=== PATIENT | female | born 1980 | race Caucasian/White ===

== ENCOUNTER 2016-08-30 17:30 | Inpatient (IN) | payer MEDICARE ==
[2016-08-30 18:09] VITALS: BP 110/69
--- NOTE | 2016-08-30 18:37 | ED Physician Chart ---
Chief Complaint/HPI - Patient Information Date Seen:: 08/30/16 Time Seen:: 18:18 Chief Complaint:: psychosis History of Present Illness:: this is a 36 yo female is here because of a sudden change in her mental status. she is a chronically ill female for multiple problems. TO NAME A FEW PROBLEMS ENCEPHALOPATHY, EPILEPSY, HYPOTHYROIDISM, HYPERLIPIDEMIA,THROMBOSIS AND GERD. SHE HAS BEEN REHAB FOR SOME TIME. TODAY SHE HAS INTRACTABLE BILATERAL LEG PAIN. Allergies:: Allergies Allergy/AdvReac Type Severity Reaction Status Date / Time clarithromycin AdvReac Verified 08/30/16 17:42 latex AdvReac Verified 08/30/16 17:42 Vitals:: Vital Signs - 8 hr 08/30/16 08/30/16 18:09 18:12 Temp 97.9 F HR 68 RR 18 BP 110/69 110/69 O2 Sat % 96 Historian:: Family Member, Medical Records Review:: Nurse's Note Reviewed, Transfer documents Reviewed <Jose Francisco Fan - Last Filed: 08/30/16 19:41> - Patient Information History of Present Illness:: Agree with Dr. Fan's assessment. 36-year-old female with acute, severe, agitation since this morning. Has associated screaming and yelling tantrums. Allergies:: Allergies Allergy/AdvReac Type Severity Reaction Status Date / Time clarithromycin AdvReac Verified 08/30/16 17:42 latex AdvReac Verified 08/30/16 17:42 Vitals:: Vital Signs - 8 hr 08/30/16 08/30/16 08/30/16 18:09 18:12 19:27 Temp 97.9 F 97.8 F HR 68 73 RR 18 18 BP 110/69 110/69 116/79 O2 Sat % 96 96 Historian:: Family Member, Medical Records Review:: Nurse's Note Reviewed, Transfer documents Reviewed <Sukhi Bradshaw - Last Filed: 08/30/16 20:20> Review of Systems - Review of Systems General/Constitutional: No fever, No chills, Weight loss, Weakness, No diaphoresis, No edema, No loss of appetite Skin: No skin lesions, No rash, No bruising Head: No headache, No light-headedness Eyes: No loss of vision, No pain, No diplopia ENT: No earache, No nasal drainage, No sore throat, No tinnitus Neck: No neck pain, No swelling, No thyromegaly, No stiffness, No mass noted Cardio Vascular: No chest pain, No palpitations, No PND, No orthopnea, No edema Pulmonary: No SOB, No cough, No sputum, No wheezing GI: No nausea, No vomiting, No diarrhea, No pain, No melena, No hematochezia, No constipation, No hematemesis G/U: No dysuria, No frequency, No hematuria Musculoskeletal: No bone or joint pain, No back pain, No muscle pain Endocrine: No polyuria, No polydipsia Psychiatric: Prior psych history, Depression, Anxiety, No suicidal ideation Hematopoietic: No bruising, No lymphadenopathy Allergic/Immuno: No urticaria, No angioedema Neurological: No syncope, Focal symptoms, Weakness, No paresthesia, No headache , No seizure, No dizziness, No confusion, No vertigo <MengJose Francisco Last Filed: 08/30/16 19:41> Past Medical History - Past Medical History Obtainable: Yes Past Medical History: HTN, CVA/TIA, DVT/PE, Dyslipidemia, PUD/GERD, Seizures, Thyroid disorder Family History: None Social History: Non Smoker, No Alcohol, No Drug Use, , Care Facility Surgical History: None Psychiatricy History: Depression Medication: Reviewed <MengJose Francisco Last Filed: 08/30/16 19:41> Family Medical History - Family Member Mother History Unknown: Yes Hx Family Coronary Artery Disease: No Hx Family Congestive Heart Failure: No Hx Family Hypertension: No Hx Family Stroke: No Hx Family Diabetes: No Hx Family Seizures: No Hx Family Dementia: No Hx Family AIDS: No Hx Family HIV: No Hx Family Psychiatric Problems: No Hx Family Tuberculosis: No <MengJose Francisco Last Filed: 08/30/16 19:41> Physical Exam - Physical Examination General/Constitutional: Awake, Well-developed, well-nourished, Alert, No distress, GCS 15, Non-toxic appearing, Ambulatory Head: Atraumatic Eyes: Lids, conjuctiva normal, PERRL, EOMI Skin: Nl inspection, No rash, No skin lesions, No ecchymosis, Well hydrated, No lymphadenopathy ENMT: External ears, nose nl, Nasal exam nl, Lips, teeth, gums nl Neck: Nontender, Full ROM w/o pain, No JVD, No nuchal rigidity, No bruit, No mass, No stridor Respiratory: Nl effort/Exclusion, Clear to Auscultation, No Wheeze/Rhonchi/Rales Cardio Vascular: RRR, No murmur, gallop, rubs, NL S1 S2 GI: No tenderness/rebounding/guarding, No organomegaly, No hernia, Normal BS's, Nondistended, No mass/bruits, No McBurney tenderness : No CVA tenderness Extremities: No tenderness or effusion, Full ROM, normal strength in all extremities, No edema, Normal digits & nails Neuro/Psych: Alert/oriented, DTR's symmetric, Normal sensory exam, Normal motor strength (WEAKNESS ), Judgement/insight normal, Mood normal (DEPRESSED MOOD), Normal gait, No focal deficits Misc: normal gait, Normal back, No paraspinal tenderness <Jose Francisco Fan - Last Filed: 08/30/16 19:41> Labs/Radiology/EKG Results - EKG Interpretations EKG Time:: 16:17 Rhythm: SINUS Byron: LEFT AXIS Rate: 76 <Jose Francisco Fan - Last Filed: 08/30/16 19:41> - Lab Results Results: Laboratory Tests 08/30/16 08/30/16 08/30/16 18:44 18:44 18:44 WBC 6.6 RBC 3.71 L Hgb 12.1 Hct 34.6 L MCV 93.3 MCH 32.5 H MCHC Differential 34.9 RDW 13.8 Plt Count 248 MPV 7.8 Neutrophils % 74.0 Lymphocytes % 19.1 L Monocytes % 6.0 Eosinophils % 0.5 Basophils % 0.4 PT 12.7 H INR 1.21 Sodium Potassium Chloride Carbon Dioxide Anion Gap BUN Creatinine Est GFR ( Amer) Est GFR (Non-Af Amer) BUN/Creatinine Ratio Glucose Calcium Total Bilirubin AST ALT Alkaline Phosphatase Troponin I Total Protein Albumin Globulin Albumin/Globulin Ratio Triglycerides 134 Cholesterol 147 LDL Cholesterol Direct 84 HDL Cholesterol 40 RPR 08/30/16 08/30/16 08/30/16 18:44 18:44 18:44 WBC RBC Hgb Hct MCV MCH MCHC Differential RDW Plt Count MPV Neutrophils % Lymphocytes % Monocytes % Eosinophils % Basophils % PT INR Sodium 138 Potassium 3.5 Chloride 103 Carbon Dioxide 27.3 Anion Gap 11.2 BUN 11 Creatinine 0.6 Est GFR ( Amer) > 60.0 Est GFR (Non-Af Amer) > 60.0 BUN/Creatinine Ratio 18.3 Glucose 100 Calcium 9.6 Total Bilirubin 0.4 AST 18 ALT 54 H Alkaline Phosphatase 234 H Troponin I < 0.01 L Total Protein 7.5 Albumin 4.3 Globulin 3.2 Albumin/Globulin Ratio 1.3 Triglycerides Cholesterol LDL Cholesterol Direct HDL Cholesterol RPR NONREACTIVE - EKG Interpretations Comments:: 12-lead EKG Interpretation by Gena Bradshaw MD: Normal Sinus Rhythm with ventricular rate of 76 beats per minute Left axis Normal intervals No acute ST or T wave changes. No obvious STEMI <Sukhi Bradshaw - Last Filed: 08/30/16 20:20> ED Septic Shock - <6hrs of presentation: Vital Signs: Vital Signs - 8 hr 08/30/16 08/30/16 18:09 18:12 Temp 97.9 F HR 68 RR 18 BP 110/69 110/69 O2 Sat % 96 <Jose Francisco Fan - Last Filed: 08/30/16 19:41> - . Is Septic Shock (SBP<90, OR Lactate>4 mmol\L) present?: No - <6hrs of presentation: Vital Signs: Vital Signs - 8 hr 08/30/16 08/30/16 08/30/16 18:09 18:12 19:27 Temp 97.9 F 97.8 F HR 68 73 RR 18 18 BP 110/69 110/69 116/79 O2 Sat % 96 96 <Sukhi Bradshaw - Last Filed: 08/30/16 20:20> Reassessment (Disposition) - Reassessment Reassessment:: Patient has altered level of consciousness. She is apparently also failing to thrive. is here providing more details. Difficult to obtain an accurate history due to her altered level of consciousness. Discussed the case with the admitting physician. Patient admitted for altered level of consciousness and failure to thrive. - Diagnosis Diagnosis:: Acute altered level of consciousness Failure to thrive - Patient Disposition Discharge/Transfer:: Acute Care w/in this hosp Admitted to:: Med/Surg Admitting Medical Physician:: Min Small Time:: 20:20 Condition at Disposition:: Stable <Sukhi Bradshaw - Last Filed: 08/30/16 20:20>
[2016-08-30 18:56] LABS: % BASOPHILS 0.4 % (0.0-2.0); % EOSINOPHILS 0.5 % (0.0-5.0); % LYMPHOCYTES 19.1 % (20.0-50.0); HEMATOCRIT 34.6 % (35.0-45.0); HEMOGLOBIN 12.1 gm/dL (11.7-15.5); MEAN CELL VOLUME 93.3 fl (81-100); MEAN CORPUSCULAR HEMOGLOBIN 32.5 pg (27.0-31.0); MEAN CORPUSCULAR HGB CONC 34.9 pg (28.0-36.0); MEAN PLATELET VOLUME 7.8 fl; NEUTROPHILE ABSOLUTE 4.9 Th/cmm (1.8-8.0); PLATELET COUNT 248 Th/cmm (150-400); RED BLOOD COUNT 3.71 Mil/cmm (3.80-5.10); RED CELL DISTRIBUTION WIDTH 13.8 % (11.5-20.0); WHITE BLOOD COUNT 6.6 Th/cmm (4.8-10.8)
[2016-08-30 19:05] LABS: INR 1.21 (0.5-1.4); PROTHROMBIN TIME (TEST) 12.7 SECONDS (9.5-11.5)
[2016-08-30 19:08] LABS: ANION GAP 11.2 (7.0-16.0); BUN - UREA NITROGEN 11 mg/dL (7-25); CARBON DIOXIDE 27.3 mEq/L (21.0-31.0); CHLORIDE 103 mEq/L (98-107); GLUCOSE 100 mg/dL (70-105); POTASSIUM SERUM 3.5 mEq/L (3.5-5.1); SODIUM SERUM 138 mEq/L (136-145)
[2016-08-30 19:09] LABS: ALB/GLOB RATIO 1.3 (1.0-1.8); ALKALINE PHOSPHATASE 234 U/L (34-104); BILIRUBIN,TOTAL 0.4 mg/dL (0.3-1.0); BUN/CREATININE RATIO 18.3; CALCIUM SERUM 9.6 mg/dL (8.6-10.3); CHOLESTEROL 147 mg/dL (<200); CREATININE - SERUM 0.6 mg/dL (0.6-1.2); SGOT 18 U/L (13-39); SGPT/ALT 54 U/L (7-52); TRIGLYCERIDES 134 mg/dL (<150)
[2016-08-30] MEDS ORDERED: cefTRIAXone 1 GM in Sodium Chloride 0.9% 50 ML IV ONE (20:18)
[2016-08-30] MEDS: D5-0.45NS 1,000 ML IV SCH (21:21)
[2016-08-30] MEDS ORDERED: Morphine Sulfate 2 mg/mL 1mL Syr ONE (21:28)
[2016-08-30] MEDS: Morphine Sulfate 2 mg/mL 1mL Syr IVP PRN (21:30)
--- NOTE | 2016-08-31 04:49 | Admit Criteria Form ---
Admit Criteria Forms - Admit Criteria Diagnosis: ACUTE LOSS OF CONSCIOUSNESS- ALOC Clinical Indications for Inpatient Care (Place 'X' for any and all applicable criteria): Ongoing inpatient care may be needed for ANY ONE of the following(1)(2)(3)(5)(6) : [ X]I. Suspected serious etiology (eg, medical disorder, REPAIR CAMERAMAN event) of mental status change [ ]II. Danger to self or others not manageable at lower level of care [ ]III. Grave disability (eg, inability to perform self care necessary at lower level of care) [ ]IV. Agitation or inappropriate behavior interfering with care for primary condition (eg, attempting to discontinue lines or drains prematurely, unable to cooperate with respiratory care) [ ]V. Delirium [A] [D][E] as described by ANY ONE of the following(26): [ ]a) Delirium due to alcohol or sedative [F] withdrawal [ ]b) Delirium of uncertain etiology that has not responded to appropriate empiric treatment [ ]c) Delirium that prevents performance of a life-sustaining function (eg, feeding or hydrating oneself) [X ]. General contraindications and/or Inappropriate clinical situations for Observational Care in patients with Acute Loss of Consciousness, when ANY ONE of the following is required: [ ]a) Prediction of prolongation of LOS based on ANY ONE of the following may be considered as a contraindication for observational care 2, 3, 4, 5, 6, 7, 8 , 9, 10, 11 [ ]i) Age > 65 yrs. [ ]ii) Patient arriving by ambulance [ ]iii) Patient with high acuity [ ]iv) Patient requiring vital sign monitoring [ ]v) Patient on IV medication [ ]b) Systolic blood pressures 180mmHg 3,12 [ ]c) Patient with altered mental status including delirium and other alteration of consciousness, (3) [ ]d) Patient whose discharge disposition will be to a assisted home or rehabilitation home should not be managed in Emergency Department Observation Unit. CMS rule requires 3 days hospital stay before such placement.3,13 [X ]e) Patient with failure to thrive due to broad array of etiologies 3,16,17 [ ]f) Inability to ambulate 3,14 Extended stay beyond goal length of stay for the primary condition may be needed until ALL of the following are present(3)(5): [ ]a) Underlying medical etiology of mental status change is absent, or has been established and adequately treated [ ]b) Danger to self or others is absent or manageable at lower level of care. [ ]c) Behavior crisis management, including physical or chemical restraints, is not required or available at lower level of car [ ]d) Substance or alcohol withdrawal is absent or manageable at lower level of care. [ ]e) Behavioral symptoms (eg, agitation, somnolence, inappropriate behavior) are absent, or are manageable at lower level of care. The [facility] content created by [facility] has been revised. The portions of the content which have been revised are identified through the use of italic text or in bold, and [facility] has neither reviewed nor approved the modified material. All other unmodified content is copyright [facility]. Please see references footnoted in the original [facility] edition 2016 Admit Criteria Met?: Yes
[2016-08-31] MEDS: Pantoprazole 40 mg/Packet GT SCH (08:54)
[2016-08-31] MEDS: Aspirin 81mg Chewable Tab GT SCH (08:54)
[2016-08-31] MEDS: Levetiracetam 500 mg/5mL 5mL UDC GT SCH ×2 (08:55→21:13)
[2016-08-31] MEDS: Docusate Sodium 100 mg/10 mL UD GT SCH ×2 (08:56→21:12)
--- NOTE | 2016-08-31 08:57 | Diagnostic Imaging Report ---
Left tibia/fibula (2 views, portable) HISTORY: Pain No acute bony abnormalities. No fractures. No periosteal reaction. IMPRESSION: No acute bony abnormalities
--- NOTE | 2016-08-31 08:58 | Diagnostic Imaging Report ---
Right tibia/fibula (2 views, portable) HISTORY: Pain The exam demonstrates an orthopedic fixation plate traversing the distal fibula. Surgical fixation screws noted in the distal tibial metaphysis. No acute abnormalities. No acute fractures. IMPRESSION: 1. Surgical changes 2. No acute bony abnormalities
--- NOTE | 2016-08-31 09:06 | Diagnostic Imaging Report ---
Left lower extremity Doppler arterial ultrasound exam HISTORY: Pain Sonographic sector images were obtained through the arterial system of the left leg. Associated Doppler data was obtained. The exam demonstrates monophasic waveforms within the common femoral proximal portion of the left superficial femoral artery. Biphasic waveforms are seen within the remainder of the superficial femoral artery, popliteal artery, anterior tibial, and posterior tibial arteries. The dorsalis pedis artery could not be evaluated due to severe swelling. No focal atherosclerotic plaque is sonographically identified. The left ankle-brachial index is normal (1.0). Decreased velocity seen within the left anterior tibial artery. IMPRESSION: 1. Limited exam due to difficulty in patient positioning. The left dorsalis pedis artery could not be evaluated due to soft tissue swelling. 2. No definite significant focal narrowing or stenosis within the arterial system of the left leg identified.
--- NOTE | 2016-08-31 09:15 | Diagnostic Imaging Report ---
Portable chest x-ray History: Shortness of breath Allowing for portable technique the heart size is normal. No focal pulmonary parenchymal processes. No hilar or mediastinal abnormalities. Impression: No acute abnormalities.
[2016-08-31] MEDS: Morphine Sulfate 2 mg/mL 1mL Syr IVP PRN ×3 (09:32→22:51)
--- NOTE | 2016-08-31 09:47 | Internal Medicine Prog Note ---
Internal Medicine Subjective - Subjective Service Date: 08/31/16 ([id number]) Internal Medicine Objective - Results Result Diagrams: 08/30/16 18:44 08/30/16 18:44 Recent Labs: Laboratory Last Values WBC 6.6 Th/cmm (4.8-10.8) 08/30/16 18:44 RBC 3.71 Mil/cmm (3.80-5.10) L 08/30/16 18:44 Hgb 12.1 gm/dL (11.7-15.5) 08/30/16 18:44 Hct 34.6 % (35.0-45.0) L 08/30/16 18:44 MCV 93.3 fl (81-100) 08/30/16 18:44 MCH 32.5 pg (27.0-31.0) H 08/30/16 18:44 MCHC Differential 34.9 pg (28.0-36.0) 08/30/16 18:44 RDW 13.8 % (11.5-20.0) 08/30/16 18:44 Plt Count 248 Th/cmm (150-400) 08/30/16 18:44 MPV 7.8 fl 08/30/16 18:44 Neutrophils % 74.0 % (40.0-80.0) 08/30/16 18:44 Lymphocytes % 19.1 % (20.0-50.0) L 08/30/16 18:44 Monocytes % 6.0 % (2.0-10.0) 08/30/16 18:44 Eosinophils % 0.5 % (0.0-5.0) 08/30/16 18:44 Basophils % 0.4 % (0.0-2.0) 08/30/16 18:44 PT 12.7 SECONDS (9.5-11.5) H 08/30/16 18:44 INR 1.21 (0.5-1.4) 08/30/16 18:44 Sodium 138 mEq/L (136-145) 08/30/16 18:44 Potassium 3.5 mEq/L (3.5-5.1) 08/30/16 18:44 Chloride 103 mEq/L (98-107) 08/30/16 18:44 Carbon Dioxide 27.3 mEq/L (21.0-31.0) 08/30/16 18:44 Anion Gap 11.2 (7.0-16.0) 08/30/16 18:44 BUN 11 mg/dL (7-25) 08/30/16 18:44 Creatinine 0.6 mg/dL (0.6-1.2) 08/30/16 18:44 Est GFR ( Amer) > 60.0 ml/min (>90) 08/30/16 18:44 Est GFR (Non-Af Amer) > 60.0 ml/min 08/30/16 18:44 BUN/Creatinine Ratio 18.3 08/30/16 18:44 Glucose 100 mg/dL (70-105) 08/30/16 18:44 Whole Bld Lactic Acid 1.13 mmol/L (0.60-1.99) 08/30/16 20:00 Calcium 9.6 mg/dL (8.6-10.3) 08/30/16 18:44 Total Bilirubin 0.4 mg/dL (0.3-1.0) 08/30/16 18:44 AST 18 U/L (13-39) 08/30/16 18:44 ALT 54 U/L (7-52) H 08/30/16 18:44 Alkaline Phosphatase 234 U/L (34-104) H 08/30/16 18:44 Troponin I < 0.01 ng/mL (0.01-0.05) L 08/30/16 18:44 Total Protein 7.5 gm/dL (6.0-8.3) 08/30/16 18:44 Albumin 4.3 gm/dL (3.7-5.3) 08/30/16 18:44 Globulin 3.2 gm/dL 08/30/16 18:44 Albumin/Globulin Ratio 1.3 (1.0-1.8) 08/30/16 18:44 Triglycerides 134 mg/dL (<150) 08/30/16 18:44 Cholesterol 147 mg/dL (<200) 08/30/16 18:44 LDL Cholesterol Direct 84 mg/dL (75-193) 08/30/16 18:44 HDL Cholesterol 40 mg/dL (23-92) 08/30/16 18:44 TSH 2.71 uIU/ml (0.34-5.60) 08/30/16 18:44 RPR NONREACTIVE (NONREACTIVE) 08/30/16 18:44 - Physical Exam Vitals and I&O: Vital Signs Temp 97.7 F 08/31/16 08:00 Pulse 99 08/31/16 08:55 Resp 18 08/31/16 08:00 BP 115/74 08/31/16 08:55 Pulse Ox 94 08/31/16 08:00 Intake & Output 08/30/16 08/31/16 08/31/16 18:59 06:59 18:59 Intake Total 620 Balance 620 Intake: Tube Feeding 500 Other 120 Other: # Voids 2 # Bowel Movements 0 Active Medications: Current Medications Acetaminophen (Tylenol) 650 mg PO Q4HR PRN PRN Reason: Mild Pain or Fever >101 Stop: 10/29/16 20:16 Acetaminophen/Hydrocodone Bitart ([place] 5mg/325mg) 1 tab PO Q4HR PRN PRN Reason: Pain (Moderate) Stop: 10/29/16 20:12 Aspirin (Aspirin Chewable) 81 mg GT DAILY [facility] Stop: 10/30/16 08:59 Last Admin: 08/31/16 08:54 Dose: 81 mg Atorvastatin Calcium (Lipitor) 20 mg GT HS [facility] Stop: 10/29/16 20:59 Buspirone HCl (Buspar) 5 mg GT BID [facility] Stop: 10/30/16 08:59 Calcitriol (Rocaltrol) 1 mcg PO Q12HR [facility] Stop: 10/29/16 20:59 Calcium Carbonate (Os-Adiel) 1,000 mg GT BID [facility] Stop: 10/30/16 08:59 Last Admin: 08/31/16 08:54 Dose: 1,000 mg Cholecalciferol (Vitamin D3) 1,000 iu GT DAILY [facility] Stop: 10/30/16 08:59 Last Admin: 08/31/16 08:55 Dose: 1,000 iu Docusate Sodium (Colace) 50 mg GT Q12HR [facility] Stop: 10/30/16 08:59 Last Admin: 08/31/16 08:56 Dose: 50 mg Folic Acid (Folate) 1 mg GT DAILY [facility] Stop: 10/30/16 08:59 Last Admin: 08/31/16 08:54 Dose: 1 mg Gabapentin (Neurontin) 100 mg PO HS [facility] Stop: 10/29/16 20:59 Dextrose/Sodium Chloride (D5-0.45ns) 1,000 mls @ 100 mls/hr IV .Q10H [facility] Stop: 10/29/16 20:29 Last Admin: 08/30/16 21:21 Dose: 100 mls/hr Levetiracetam (Keppra) 750 mg GT Q12HR [facility] Stop: 10/29/16 20:59 Last Admin: 08/31/16 08:55 Dose: 750 mg Lorazepam (Ativan) 1 mg PO Q8HR PRN; Protocol PRN Reason: Anxiety Stop: 10/29/16 20:12 Last Admin: 08/30/16 21:20 Dose: 1 mg Lorazepam (Ativan) 1 mg IV Q4HR PRN; Protocol PRN Reason: Seizure Stop: 10/29/16 20:16 Last Admin: 08/30/16 23:02 Dose: 1 mg Memantine (Namenda) 5 mg PO BID [facility] Stop: 10/30/16 08:59 Last Admin: 08/31/16 08:54 Dose: 5 mg Metoprolol Tartrate (Lopressor) 12.5 mg PO BID [facility] Stop: 10/30/16 08:59 Last Admin: 08/31/16 08:55 Dose: 12.5 mg Morphine Sulfate (Morphine) 2 mg IVP Q4HR PRN PRN Reason: Severe Pain Stop: 10/29/16 20:16 Last Admin: 08/31/16 09:32 Dose: 2 mg Ondansetron HCl (Zofran) 4 mg IV Q8H PRN PRN Reason: Nausea / Vomiting Stop: 10/29/16 20:16 Pantoprazole Sodium (Protonix) 40 mg GT DAILY [facility] Stop: 10/30/16 08:59 Last Admin: 08/31/16 08:54 Dose: 40 mg Quetiapine Fumarate (Seroquel) 25 mg GT HS [facility] PRN Reason: Protocol Stop: 10/29/16 20:59 Sertraline HCl (Zoloft) 50 mg GT DAILY [facility] PRN Reason: Protocol Stop: 10/30/16 08:59 Last Admin: 08/31/16 08:56 Dose: 50 mg Valproate Sodium (Depakene) 500 mg PO Q12H [facility] PRN Reason: Protocol Stop: 10/29/16 20:14 Last Admin: 08/31/16 08:55 Dose: 500 mg Internal Medicine Assmt/Plan - Assessment Assessment: ALOC Failure To Thrive Agitation HTN EPILEPSY HYPERLIPIDEMIA HYPOTHYROIDISM GERD
--- NOTE | 2016-08-31 11:42 | History & Physical ---
CHIEF COMPLAINT: Failure to thrive and psychosis. HISTORY OF PRESENT ILLNESS: This is a 36-year-old female who is a resident of [facility], who is brought here to [facility] for change in mental status. The patient is a very poor historian, unable to answer my questions. The patient starts crying. The patient does complain of bilateral leg pain. PAST MEDICAL HISTORY: Generalized weakness, dysphagia, encephalopathy, epilepsy, hypothyroidism, hyperlipidemia, anxiety, polyneuropathy, hypertension, acute embolism, thrombosis, GERD with esophagitis. PAST SURGICAL HISTORY: Thyroid, cholecystectomy, appendectomy. PSYCHIATRIC HISTORY: Depression. MEDICATIONS: Please see medication reconciliation sheet. REVIEW OF SYSTEMS: Unable to obtain. The patient unable to answer my questions at this time. The patient is very depressed. PHYSICAL EXAMINATION: GENERAL: The patient appears depressed, well developed, well nourished, no apparent distress. VITAL SIGNS: Temperature 97.7, heart rate 99, blood pressure 150/74, respirations 18, O2 94%. HEENT: Head; normocephalic, atraumatic. NECK: Supple. No mass. LUNGS: Clear bilaterally. CARDIOVASCULAR: Regular rhythm. ABDOMEN: Soft, nontender. LABORATORY DATA: WBC 6.6, H and H 12.1 and 34.6, platelet of 248. Sodium ____, potassium 3.5, chloride 103, BUN 11, creatinine 0.6. Troponin 0.01. DIAGNOSTICS: The patient had arterial Doppler study, and the impression is negative for any DVT. The patient also had an x-ray of the tibia and fibula and the impression is no acute bony abnormalities. ASSESSMENT: Altered level of consciousness, failure to thrive, agitation, epilepsy, hyperlipidemia, hypothyroidism, hypertension and gastroesophageal reflux disease. PLAN: The patient to be admitted to the med/surg unit. The patient will have a consultation with Dr. Josue. We will keep the patient on IV fluids for hydration. We will monitor patient's intake and output. We will continue to monitor the patient. JOB# [id number]
[2016-08-31] MEDS: D5-0.45NS 1,000 ML IV SCH (13:38)
--- NOTE | 2016-08-31 14:01 | Consultation ---
PHYSICIAN REQUESTING CONSULTATION: Dr. Small. REASON FOR CONSULTATION: Depression. HISTORY OF PRESENT ILLNESS: This patient is a 36-year-old woman, [facility], admitted over here for altered level of consciousness. Chart is reviewed. Staff was spoken to. The patient is interviewed. During the interview, the patient is noted to be very dysphoric and is reported to have been yelling and screaming, saying that she has been anxious and needs to get her anxiety medications. The patient is screaming that she was getting Ativan every couple of hours and she is not getting in here. The patient has been diagnosed to have major depressive disorder and has been maintained on Zoloft 50 mg in the morning, BuSpar 5 mg twice a day and patient is also getting Ativan 0.5 mg q. 6 p.r.n. The patient has also been on Seroquel. The patient at this time is stating that she is getting frustrated. The patient is not able to calm down until she is going to get her Ativan. PAST PSYCHIATRIC HISTORY: The patient has prior psychiatric hospitalizations. SOCIAL HISTORY: The patient is a resident of a longterm facility at this time. STRENGTHS AND ASSETS: The patient is motivated. MENTAL EXAMINATION: The patient is a 36-year-old, looking her stated age, superficially cooperative. Eye contact is poor. Mood is noted to be irritable. Affect is constricted. Coping skills are noted to be very poor. The patient is reported to have some support from her family. The patient is denying any auditory hallucinations. No delusions are noted, but patient has reported to have had some visual hallucinations in the past. The patient is not suicidal or homicidal at this time. DIAGNOSTIC IMPRESSION: Major depressive disorder, recurrent and moderate. PLAN: To continue the patient with Zoloft and restart the Ativan on a p.r.n. basis and Seroquel is going to be given 25 mg twice a day. The patient is going to be followed up with supportive therapy. Once stabilized, the patient is going to be discharged to [facility] to be followed up on an outpatient basis. [facility]# [id number]
[2016-08-31] MEDS: Hydrocodone/APAP 5mg/325mg Tab PO PRN (18:50)
[2016-08-31] MEDS: Atorvastatin Calcium 10 MG TAB GT SCH (21:13)
[2016-09-01] MEDS: Morphine Sulfate 2 mg/mL 1mL Syr IVP PRN ×3 (02:54→17:57)
[2016-09-01] MEDS: Hydrocodone/APAP 5mg/325mg Tab PO PRN ×3 (04:39→20:25)
[2016-09-01 06:26] LABS: % EOSINOPHILS 1.8 % (0.0-5.0); % LYMPHOCYTES 19.7 % (20.0-50.0); % MONOCYTES 7.5 % (2.0-10.0); HEMATOCRIT 32.1 % (35.0-45.0); HEMOGLOBIN 11.2 gm/dL (11.7-15.5); MEAN CELL VOLUME 93.5 fl (81-100); MEAN CORPUSCULAR HEMOGLOBIN 32.6 pg (27.0-31.0); MEAN CORPUSCULAR HGB CONC 34.8 pg (28.0-36.0); MEAN PLATELET VOLUME 8.3 fl; PLATELET COUNT 200 Th/cmm (150-400); RED BLOOD COUNT 3.43 Mil/cmm (3.80-5.10); RED CELL DISTRIBUTION WIDTH 13.6 % (11.5-20.0); WHITE BLOOD COUNT 5.6 Th/cmm (4.8-10.8)
[2016-09-01 06:34] LABS: ANION GAP 9.7 (7.0-16.0); BUN - UREA NITROGEN 20 mg/dL (7-25); BUN/CREATININE RATIO 33.3; CALCIUM SERUM 8.9 mg/dL (8.6-10.3); CARBON DIOXIDE 27.7 mEq/L (21.0-31.0); CHLORIDE 105 mEq/L (98-107); CREATININE - SERUM 0.6 mg/dL (0.6-1.2); GLUCOSE 106 mg/dL (70-105); POTASSIUM SERUM 3.4 mEq/L (3.5-5.1); SODIUM SERUM 139 mEq/L (136-145)
[2016-09-01] MEDS: Levetiracetam 500 mg/5mL 5mL UDC GT SCH ×2 (08:14→21:25)
[2016-09-01] MEDS: Docusate Sodium 100 mg/10 mL UD GT SCH ×2 (08:15→21:26)
[2016-09-01] MEDS: Aspirin 81mg Chewable Tab GT SCH (08:17)
[2016-09-01] MEDS: Pantoprazole 40 mg/Packet GT SCH (08:17)
[2016-09-01] MEDS ORDERED: Potassium Chloride 20 mEq ER Tab PO ONE (14:12)
--- NOTE | 2016-09-01 14:34 | Internal Medicine Prog Note ---
Internal Medicine Subjective - Subjective Service Date: 09/01/16 Patient seen and examined:: with staff Patient is:: awake, other (depressed) Per staff patient is:: no adverse event Internal Medicine Objective - Results Result Diagrams: 09/01/16 05:20 09/01/16 05:20 Recent Labs: Laboratory Last Values WBC 5.6 Th/cmm (4.8-10.8) 09/01/16 05:20 RBC 3.43 Mil/cmm (3.80-5.10) L 09/01/16 05:20 Hgb 11.2 gm/dL (11.7-15.5) L 09/01/16 05:20 Hct 32.1 % (35.0-45.0) L 09/01/16 05:20 MCV 93.5 fl (81-100) 09/01/16 05:20 MCH 32.6 pg (27.0-31.0) H 09/01/16 05:20 MCHC Differential 34.8 pg (28.0-36.0) 09/01/16 05:20 RDW 13.6 % (11.5-20.0) 09/01/16 05:20 Plt Count 200 Th/cmm (150-400) 09/01/16 05:20 MPV 8.3 fl 09/01/16 05:20 Neutrophils % 71.0 % (40.0-80.0) 09/01/16 05:20 Lymphocytes % 19.7 % (20.0-50.0) L 09/01/16 05:20 Monocytes % 7.5 % (2.0-10.0) 09/01/16 05:20 Eosinophils % 1.8 % (0.0-5.0) 09/01/16 05:20 Basophils % 0.0 % (0.0-2.0) 09/01/16 05:20 PT 12.7 SECONDS (9.5-11.5) H 08/30/16 18:44 INR 1.21 (0.5-1.4) 08/30/16 18:44 Sodium 139 mEq/L (136-145) 09/01/16 05:20 Potassium 3.4 mEq/L (3.5-5.1) L 09/01/16 05:20 Chloride 105 mEq/L (98-107) 09/01/16 05:20 Carbon Dioxide 27.7 mEq/L (21.0-31.0) 09/01/16 05:20 Anion Gap 9.7 (7.0-16.0) 09/01/16 05:20 BUN 20 mg/dL (7-25) 09/01/16 05:20 Creatinine 0.6 mg/dL (0.6-1.2) 09/01/16 05:20 Est GFR ( Amer) > 60.0 ml/min (>90) 09/01/16 05:20 Est GFR (Non-Af Amer) > 60.0 ml/min 09/01/16 05:20 BUN/Creatinine Ratio 33.3 09/01/16 05:20 Glucose 106 mg/dL (70-105) H 09/01/16 05:20 Whole Bld Lactic Acid 1.13 mmol/L (0.60-1.99) 08/30/16 20:00 Calcium 8.9 mg/dL (8.6-10.3) 09/01/16 05:20 Total Bilirubin 0.4 mg/dL (0.3-1.0) 08/30/16 18:44 AST 18 U/L (13-39) 08/30/16 18:44 ALT 54 U/L (7-52) H 08/30/16 18:44 Alkaline Phosphatase 234 U/L (34-104) H 08/30/16 18:44 Troponin I < 0.01 ng/mL (0.01-0.05) L 08/30/16 18:44 Total Protein 7.5 gm/dL (6.0-8.3) 08/30/16 18:44 Albumin 4.3 gm/dL (3.7-5.3) 08/30/16 18:44 Globulin 3.2 gm/dL 08/30/16 18:44 Albumin/Globulin Ratio 1.3 (1.0-1.8) 08/30/16 18:44 Triglycerides 134 mg/dL (<150) 08/30/16 18:44 Cholesterol 147 mg/dL (<200) 08/30/16 18:44 LDL Cholesterol Direct 84 mg/dL (75-193) 08/30/16 18:44 HDL Cholesterol 40 mg/dL (23-92) 08/30/16 18:44 TSH 2.71 uIU/ml (0.34-5.60) 08/30/16 18:44 RPR NONREACTIVE (NONREACTIVE) 08/30/16 18:44 - Physical Exam Vitals and I&O: Vital Signs Temp 97.6 F 09/01/16 12:00 Pulse 78 09/01/16 12:00 Resp 20 09/01/16 12:00 BP 102/53 09/01/16 12:00 Pulse Ox 100 09/01/16 12:00 Intake & Output 08/31/16 09/01/16 09/01/16 18:59 06:59 18:59 Intake Total 1075 1230 Balance 1075 1230 Intake: Intake, IV Amount 1000 D5-0.45NS 1,000 ml @ 100 1000 mls/hr IV .Q10H [facility] Rx#: [id number] Oral 240 Tube Feeding 75 750 Other 240 Other: # Voids 3 3 # Bowel Movements 1 0 Active Medications: Current Medications Acetaminophen (Tylenol) 650 mg PO Q4HR PRN PRN Reason: Mild Pain or Fever >101 Stop: 10/29/16 20:16 Acetaminophen/Hydrocodone Bitart ([place] 5mg/325mg) 1 tab PO Q4HR PRN PRN Reason: Pain (Moderate) Stop: 10/29/16 20:12 Last Admin: 09/01/16 04:39 Dose: 1 tab Aspirin (Aspirin Chewable) 81 mg GT DAILY [facility] Stop: 10/30/16 08:59 Last Admin: 09/01/16 08:17 Dose: 81 mg Atorvastatin Calcium (Lipitor) 20 mg GT HS [facility] Stop: 10/29/16 20:59 Last Admin: 08/31/16 21:13 Dose: 20 mg Buspirone HCl (Buspar) 5 mg GT BID [facility] Stop: 10/30/16 08:59 Last Admin: 09/01/16 08:16 Dose: 5 mg Calcitriol (Rocaltrol) 1 mcg PO Q12HR [facility] Stop: 10/29/16 20:59 Last Admin: 09/01/16 08:16 Dose: 1 mcg Calcium Carbonate (Os-Adiel) 1,000 mg GT BID [facility] Stop: 10/30/16 08:59 Last Admin: 09/01/16 08:16 Dose: 1,000 mg Cholecalciferol (Vitamin D3) 1,000 iu GT DAILY [facility] Stop: 10/30/16 08:59 Last Admin: 09/01/16 08:17 Dose: 1,000 iu Docusate Sodium (Colace) 50 mg GT Q12HR [facility] Stop: 10/30/16 08:59 Last Admin: 09/01/16 08:15 Dose: 50 mg Folic Acid (Folate) 1 mg GT DAILY [facility] Stop: 10/30/16 08:59 Last Admin: 09/01/16 08:15 Dose: 1 mg Gabapentin (Neurontin) 100 mg PO HS [facility]AY Stop: 10/29/16 20:59 Last Admin: 08/31/16 21:14 Dose: 100 mg Dextrose/Sodium Chloride (D5-0.45ns) 1,000 mls @ 100 mls/hr IV .Q10H [facility] Stop: 10/29/16 20:29 Last Admin: 08/31/16 13:38 Dose: 100 mls/hr Levetiracetam (Keppra) 750 mg GT Q12HR [facility] Stop: 10/29/16 20:59 Last Admin: 09/01/16 08:14 Dose: 750 mg Lorazepam (Ativan) 1 mg IV Q4HR PRN; Protocol PRN Reason: Seizure Stop: 10/29/16 20:16 Last Admin: 08/31/16 18:54 Dose: 1 mg Lorazepam (Ativan) 1 mg PO Q6HR PRN; Protocol PRN Reason: Agitation Stop: 10/30/16 12:50 Last Admin: 09/01/16 03:05 Dose: 1 mg Memantine (Namenda) 5 mg PO BID [facility] Stop: 10/30/16 08:59 Last Admin: 09/01/16 08:17 Dose: 5 mg Metoprolol Tartrate (Lopressor) 12.5 mg PO BID [facility] Stop: 10/30/16 08:59 Last Admin: 09/01/16 08:17 Dose: 12.5 mg Morphine Sulfate (Morphine) 2 mg IVP Q4HR PRN PRN Reason: Severe Pain Stop: 10/29/16 20:16 Last Admin: 09/01/16 06:58 Dose: 2 mg Ondansetron HCl (Zofran) 4 mg IV Q8H PRN PRN Reason: Nausea / Vomiting Stop: 10/29/16 20:16 Pantoprazole Sodium (Protonix) 40 mg GT DAILY [facility] Stop: 10/30/16 08:59 Last Admin: 09/01/16 08:17 Dose: 40 mg Quetiapine Fumarate (Seroquel) 25 mg PO Q12H [facility] PRN Reason: Protocol Stop: 10/31/16 08:59 Last Admin: 09/01/16 08:17 Dose: 25 mg Sertraline HCl (Zoloft) 50 mg GT DAILY [facility] PRN Reason: Protocol Stop: 10/30/16 08:59 Last Admin: 09/01/16 08:17 Dose: 50 mg Valproate Sodium (Depakene) 500 mg PO Q12H [facility] PRN Reason: Protocol Stop: 10/29/16 20:14 Last Admin: 09/01/16 08:15 Dose: 500 mg General: alert HEENT: NC/AT, PERRLA Neck: Supple Lungs: CTAB Cardiovascular: RRR, Normal S1, Normal S2, without murmur Abdomen: soft non-tender, non-distended Extremities: clear Internal Medicine Assmt/Plan - Assessment Assessment: 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
[2016-09-01] MEDS: Atorvastatin Calcium 10 MG TAB GT SCH (21:23)
[2016-09-02] MEDS: D5-0.45NS 1,000 ML IV SCH (03:08)
[2016-09-02] MEDS: Morphine Sulfate 2 mg/mL 1mL Syr IVP PRN ×3 (03:12→17:31)
[2016-09-02 05:59] LABS: % EOSINOPHILS 2.6 % (0.0-5.0); % LYMPHOCYTES 17.3 % (20.0-50.0); % MONOCYTES 7.5 % (2.0-10.0); % NEUTROPHILS 72.6 % (40.0-80.0); HEMATOCRIT 30.3 % (35.0-45.0); HEMOGLOBIN 10.4 gm/dL (11.7-15.5); MEAN CELL VOLUME 94.1 fl (81-100); MEAN CORPUSCULAR HEMOGLOBIN 32.4 pg (27.0-31.0); MEAN CORPUSCULAR HGB CONC 34.5 pg (28.0-36.0); MEAN PLATELET VOLUME 8.1 fl; NEUTROPHILE ABSOLUTE 3.6 Th/cmm (1.8-8.0); PLATELET COUNT 187 Th/cmm (150-400); RED BLOOD COUNT 3.22 Mil/cmm (3.80-5.10); RED CELL DISTRIBUTION WIDTH 13.6 % (11.5-20.0)
[2016-09-02] MEDS: Hydrocodone/APAP 5mg/325mg Tab PO PRN (06:08)
[2016-09-02 06:36] LABS: ANION GAP 11.8 (7.0-16.0); BUN - UREA NITROGEN 19 mg/dL (7-25); CALCIUM SERUM 9.1 mg/dL (8.6-10.3); CARBON DIOXIDE 25.1 mEq/L (21.0-31.0); CHLORIDE 105 mEq/L (98-107); CREATININE - SERUM 0.5 mg/dL (0.6-1.2); GLUCOSE 104 mg/dL (70-105); POTASSIUM SERUM 3.9 mEq/L (3.5-5.1); SODIUM SERUM 138 mEq/L (136-145)
[2016-09-02] MEDS: Levetiracetam 500 mg/5mL 5mL UDC GT SCH ×2 (08:38→21:10)
[2016-09-02] MEDS: Docusate Sodium 100 mg/10 mL UD GT SCH ×2 (08:40→21:11)
[2016-09-02] MEDS: Aspirin 81mg Chewable Tab GT SCH (08:43)
[2016-09-02] MEDS: Pantoprazole 40 mg/Packet GT SCH (08:44)
--- NOTE | 2016-09-02 12:29 | Diagnostic Imaging Report ---
Right lower extremity arterial Doppler study HISTORY: Pain COMPARISON: Left lower extremity arterial Doppler performed the same day Technique: Longitudinal and transverse sonographic images of the right lower extremity arteries were obtained with doppler analysis. FINDINGS: Exam of the right side demonstrates intimal thickening and mild generalized atherosclerotic vascular disease. Primarily biphasic flow is seen throughout the right lower extremity. There is decreased velocity of the right anterior tibialis artery is 17 cm/second. The right dorsalis pedis artery was not visualized due to overlying subcutaneous edema. IMPRESSION: Mild atherosclerotic vascular disease. There is decreased velocity right tibialis anterior artery at 17 cm/second. There is also nonvisualization of the dorsalis pedis artery due to overlying edema. Please correlate with clinical findings. If indicated dedicated CT angiography of the lower extremities may also be obtained for further assessment.
--- NOTE | 2016-09-02 12:54 | Diagnostic Imaging Report ---
Bilateral lower extremity DVT study HISTORY: Pain COMPARISON: None Technique: Longitudinal and transverse sonographic images of the bilateral lower extremity veins were obtained with doppler analysis. FINDINGS: There is normal compressibility, augmentation and phasicity of the bilateral common femoral, superficial femoral, popliteal, and posterior tibial veins. No thrombus is visualized. IMPRESSION: No evidence of thrombus within the bilateral lower extremity veins.
[2016-09-02] MEDS ORDERED: Haloperidol Lactate 5 mg/mL 1mL Vial IM ONE (13:44)
--- NOTE | 2016-09-02 15:34 | Internal Medicine Prog Note ---
Internal Medicine Subjective - Subjective Patient seen and examined:: with staff, chart reviewed Patient is:: verbal, interactive Per staff patient is:: no adverse event, unstable gait, agitated, combative, noncompliant Internal Medicine Objective - Results Result Diagrams: 09/02/16 05:38 09/02/16 05:38 Recent Labs: Laboratory Last Values WBC 5.0 Th/cmm (4.8-10.8) 09/02/16 05:38 RBC 3.22 Mil/cmm (3.80-5.10) L 09/02/16 05:38 Hgb 10.4 gm/dL (11.7-15.5) L 09/02/16 05:38 Hct 30.3 % (35.0-45.0) L 09/02/16 05:38 MCV 94.1 fl (81-100) 09/02/16 05:38 MCH 32.4 pg (27.0-31.0) H 09/02/16 05:38 MCHC Differential 34.5 pg (28.0-36.0) 09/02/16 05:38 RDW 13.6 % (11.5-20.0) 09/02/16 05:38 Plt Count 187 Th/cmm (150-400) 09/02/16 05:38 MPV 8.1 fl 09/02/16 05:38 Neutrophils % 72.6 % (40.0-80.0) 09/02/16 05:38 Lymphocytes % 17.3 % (20.0-50.0) L 09/02/16 05:38 Monocytes % 7.5 % (2.0-10.0) 09/02/16 05:38 Eosinophils % 2.6 % (0.0-5.0) 09/02/16 05:38 Basophils % 0.0 % (0.0-2.0) 09/02/16 05:38 PT 12.7 SECONDS (9.5-11.5) H 08/30/16 18:44 INR 1.21 (0.5-1.4) 08/30/16 18:44 Sodium 138 mEq/L (136-145) 09/02/16 05:38 Potassium 3.9 mEq/L (3.5-5.1) 09/02/16 05:38 Chloride 105 mEq/L (98-107) 09/02/16 05:38 Carbon Dioxide 25.1 mEq/L (21.0-31.0) 09/02/16 05:38 Anion Gap 11.8 (7.0-16.0) 09/02/16 05:38 BUN 19 mg/dL (7-25) 09/02/16 05:38 Creatinine 0.5 mg/dL (0.6-1.2) L 09/02/16 05:38 Est GFR ( Amer) > 60.0 ml/min (>90) 09/02/16 05:38 Est GFR (Non-Af Amer) > 60.0 ml/min 09/02/16 05:38 BUN/Creatinine Ratio 38.0 09/02/16 05:38 Glucose 104 mg/dL (70-105) 09/02/16 05:38 Whole Bld Lactic Acid 1.13 mmol/L (0.60-1.99) 08/30/16 20:00 Calcium 9.1 mg/dL (8.6-10.3) 09/02/16 05:38 Total Bilirubin 0.4 mg/dL (0.3-1.0) 08/30/16 18:44 AST 18 U/L (13-39) 08/30/16 18:44 ALT 54 U/L (7-52) H 08/30/16 18:44 Alkaline Phosphatase 234 U/L (34-104) H 08/30/16 18:44 Troponin I < 0.01 ng/mL (0.01-0.05) L 08/30/16 18:44 Total Protein 7.5 gm/dL (6.0-8.3) 08/30/16 18:44 Albumin 4.3 gm/dL (3.7-5.3) 08/30/16 18:44 Globulin 3.2 gm/dL 08/30/16 18:44 Albumin/Globulin Ratio 1.3 (1.0-1.8) 08/30/16 18:44 Triglycerides 134 mg/dL (<150) 08/30/16 18:44 Cholesterol 147 mg/dL (<200) 08/30/16 18:44 LDL Cholesterol Direct 84 mg/dL (75-193) 08/30/16 18:44 HDL Cholesterol 40 mg/dL (23-92) 08/30/16 18:44 TSH 2.71 uIU/ml (0.34-5.60) 08/30/16 18:44 RPR NONREACTIVE (NONREACTIVE) 08/30/16 18:44 - Physical Exam Vitals and I&O: Vital Signs Temp 97.6 F 09/02/16 08:47 Pulse 82 09/02/16 09:43 Resp 18 09/02/16 12:00 BP 103/60 09/02/16 08:47 Pulse Ox 98 09/02/16 09:43 Intake & Output 09/01/16 09/02/16 09/02/16 18:59 06:59 18:59 Intake Total 200 950 Output Total 0 Balance 200 950 Intake: Oral 200 100 Tube Feeding 850 Output: Stool 0 Other: # Voids 2 3 Active Medications: Current Medications Acetaminophen (Tylenol) 650 mg PO Q4HR PRN PRN Reason: Mild Pain or Fever >101 Stop: 10/29/16 20:16 Acetaminophen/Hydrocodone Bitart ([place] 5mg/325mg) 1 tab PO Q4HR PRN PRN Reason: Pain (Moderate) Stop: 10/29/16 20:12 Last Admin: 09/02/16 06:08 Dose: 1 tab Aspirin (Aspirin Chewable) 81 mg GT DAILY [facility] Stop: 10/30/16 08:59 Last Admin: 09/02/16 08:43 Dose: 81 mg Atorvastatin Calcium (Lipitor) 20 mg GT HS [facility] Stop: 10/29/16 20:59 Last Admin: 09/01/16 21:23 Dose: 20 mg Calcitriol (Rocaltrol) 1 mcg PO Q12HR [facility] Stop: 10/29/16 20:59 Last Admin: 09/02/16 08:43 Dose: 1 mcg Calcium Carbonate (Os-Adiel) 1,000 mg GT BID [facility] Stop: 10/30/16 08:59 Last Admin: 09/02/16 08:44 Dose: 1,000 mg Cholecalciferol (Vitamin D3) 1,000 iu GT DAILY [facility] Stop: 10/30/16 08:59 Last Admin: 09/02/16 08:43 Dose: 1,000 iu Docusate Sodium (Colace) 50 mg GT Q12HR [facility] Stop: 10/30/16 08:59 Last Admin: 09/02/16 08:40 Dose: 50 mg Folic Acid (Folate) 1 mg GT DAILY [facility] Stop: 10/30/16 08:59 Last Admin: 09/02/16 08:44 Dose: 1 mg Gabapentin (Neurontin) 100 mg PO HS [facility] Stop: 10/29/16 20:59 Last Admin: 09/01/16 21:24 Dose: 100 mg Dextrose/Sodium Chloride (D5-0.45ns) 1,000 mls @ 100 mls/hr IV .Q10H [facility] Stop: 10/29/16 20:29 Last Admin: 09/02/16 03:08 Dose: 100 mls/hr Levetiracetam (Keppra) 750 mg GT Q12HR [facility] Stop: 10/29/16 20:59 Last Admin: 09/02/16 08:38 Dose: 750 mg Lorazepam (Ativan) 1 mg IV Q4HR PRN; Protocol PRN Reason: Seizure Stop: 10/29/16 20:16 Last Admin: 08/31/16 18:54 Dose: 1 mg Lorazepam (Ativan) 1 mg PO Q6HR PRN; Protocol PRN Reason: Agitation Stop: 10/30/16 12:50 Last Admin: 09/02/16 04:35 Dose: 1 mg Metoprolol Tartrate (Lopressor) 12.5 mg PO BID [facility] Stop: 10/30/16 08:59 Last Admin: 09/02/16 08:43 Dose: 12.5 mg Morphine Sulfate (Morphine) 2 mg IVP Q4HR PRN PRN Reason: Severe Pain Stop: 10/29/16 20:16 Last Admin: 09/02/16 07:51 Dose: 2 mg Ondansetron HCl (Zofran) 4 mg IV Q8H PRN PRN Reason: Nausea / Vomiting Stop: 10/29/16 20:16 Pantoprazole Sodium (Protonix) 40 mg GT DAILY [facility] Stop: 10/30/16 08:59 Last Admin: 09/02/16 08:44 Dose: 40 mg Quetiapine Fumarate (Seroquel) 50 mg PO TID [facility]AY PRN Reason: Protocol Stop: 11/01/16 13:59 Sertraline HCl (Zoloft) 50 mg GT BID [facility] PRN Reason: Protocol Stop: 11/01/16 16:59 Valproate Sodium (Depakene) 500 mg PO Q12H [facility] PRN Reason: Protocol Stop: 10/29/16 20:14 Last Admin: 09/02/16 08:39 Dose: 500 mg General: demented HEENT: PERRLA Neck: Supple, No JVD Lungs: congested Cardiovascular: RRR, Normal S1, Normal S2 Abdomen: soft non-tender, globular, positive bowel sound Extremities: excoriation, contracture Neurological: disorganized, unable to follow command Internal Medicine Assmt/Plan - Assessment Assessment: 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
[2016-09-02] MEDS: Atorvastatin Calcium 10 MG TAB GT SCH (21:09)
--- NOTE | 2016-09-03 00:11 | Progress Notes ---
SUBJECTIVE: The patient was seen, chart reviewed, and discussed with staff. Still anxious, depressed, yelling, and easily agitated for her with the crying spells, throwing her lunch tray on the ground. The patient remains very impulsive and appears to be responding to stimuli. She is oriented to person. She knew she was in the hospital and knew her date of . Insight is still poor. ASSESSMENT: The patient is still depressed, still in psychotic phase. PLAN: We will increase Seroquel to 50 mg p.o. t.i.d., hold if sedated, increase Zoloft to 50 mg p.o. b.i.d. Monitor closely. [facility] [place]# [id number]
[2016-09-03] MEDS: Hydrocodone/APAP 5mg/325mg Tab PO PRN ×3 (05:45→14:59)
[2016-09-03] MEDS: Levetiracetam 500 mg/5mL 5mL UDC GT SCH (09:17)
[2016-09-03] MEDS: Pantoprazole 40 mg/Packet GT SCH (09:18)
[2016-09-03] MEDS: Docusate Sodium 100 mg/10 mL UD GT SCH (09:18)
[2016-09-03] MEDS: Aspirin 81mg Chewable Tab GT SCH (09:18)
--- NOTE | 2016-09-04 01:55 | Progress Notes ---
SUBJECTIVE: I met this patient and discussed with staff. was visiting. The patient is calmer today, less agitation, less irritable, less yelling, and does not appear to be sedated. The patient is still somewhat forgetful. Insight is still limited. Discussed with condition and symptoms. The patient may return back to [facility] once she is physically more capable, maybe has no G-tube, and she might be a good candidate for a rehab unit. JOB# [id number]
--- NOTE | 2016-09-04 03:29 | Discharge Summary ---
CHIEF COMPLAINT: Increasing agitation, failure to thrive. FINAL DIAGNOSES: Failure to thrive, altered level of consciousness secondary to psych disorder, agitation, traumatic brain injury, hypertension, seizure, hyperlipidemia, hypothyroidism, gastroesophageal reflux disease, and electrolyte abnormalities. HISTORY: This is a 36-year-old female with history of ____ seizure, hyperlipidemia, polyneuropathy, hypertension, thrombosis, GERD, who was admitted from nursing facility secondary to change in mental status. The patient was not eating, not answering questions. The patient was crying incessantly. The patient was also complaining of a lot of leg pain. The patient admitted here for further management. PHYSICAL EXAMINATION: VITAL SIGNS: Blood pressure 120/77, respirations 19, pulse ____, temperature 98.0. GENERAL: Middle-aged male, appears chronically ill. NECK: Supple. No mass. LUNGS: Equal breath sounds, few rhonchi. HEART: Regular rate and rhythm without appreciable murmurs. ABDOMEN: Soft, nontender, ____ G-tube. EXTREMITIES: ____ contractures. NEUROLOGIC: Limited. HOSPITAL COURSE: The patient was admitted to medical floor. The patient was referred to Dr. Snow and Dr. Josue for psych. Bilateral arterial Doppler study also was negative for DVT. Arterial ultrasound did not show any stenosis. X-ray also did not show any acute fracture. The patient's psychotropic medications were adjusted. The patient was cleared for discharge. CONDITION ON DISCHARGE: Fair. DISCHARGE INSTRUCTIONS: The case was discussed with the patient's and he is agreeable to the above plan to continue with current care at the nursing facility. The patient is unable to be transferred to [facility] or [facility] secondary to a G-tube. JOB# [id number]
== END 2016-09-03 18:30 | DRG 86 ==
LOC: ER 17:30 → MSI 20:20 → TELE 08-31 19:41
PROVIDERS: ADMIT Internal Medicine; ATTEND Internal Medicine
DX: S06.9X0A Unspecified intracranial injury without loss of consciousness, initial encounter (principal); F33.1 Major depressive disorder, recurrent, moderate; I10 Essential (primary) hypertension; R62.7 Adult failure to thrive; R13.10 Dysphagia, unspecified; G62.9 Polyneuropathy, unspecified; R40.4 Transient alteration of awareness; G40.909 Epilepsy, unspecified, not intractable, without status epilepticus; E78.5 Hyperlipidemia, unspecified; E03.9 Hypothyroidism, unspecified; K21.9 Gastro-esophageal reflux disease without esophagitis; F29 Unspecified psychosis not due to a substance or known physiological condition; R53.1 Weakness; F41.9 Anxiety disorder, unspecified; Z86.718 Personal history of other venous thrombosis and embolism; Z79.01 Long term (current) use of anticoagulants; Z86.711 Personal history of pulmonary embolism; Z90.49 Acquired absence of other specified parts of digestive tract; Z91.14 Patient's other noncompliance with medication regimen; Z88.1 Allergy status to other antibiotic agents; Z86.73 Personal history of transient ischemic attack (TIA), and cerebral infarction without residual deficits; Z91.040 Latex allergy status
CPT/HCPCS: 36415-UA; 71010-TC; 73590-TC-LT; 73590-TC-RT; 80048-TC; 80053-TC; 80061-TC; 83605; 84443-TC; 84484-TC; 85025-TC; 85610-TC; 86592-TC; 93005; 93926-LT-TC; 93926-RT-TC; 93970-TC-50; 94760; 96374; 96375; 96379; J1200; J1630; J1885; J2060; J2270; Z7610